=== PATIENT | female | born 1970 | race Asian ===

== ENCOUNTER 2017-03-09 18:33 | Inpatient (IN) | payer OTHER ==
[~2017-03-09] VITALS: Ht 165.1 cm; Wt 60.5 kg
[2017-03-09 18:41] VITALS: Ht 165.1 cm; Wt 60.5 kg
[2017-03-09 19:32] LABS: PLATELET COUNT 422 x10^3mcL (130-400); RED CELL DISTRIBUTION WIDTH 22.3 % (11.5-14.5)
[2017-03-09 19:42] LABS: CARBON DIOXIDE 26.8 mmol/L (21-32); CHLORIDE SERUM 105 mmol/L (98-107); CREATININE SERUM 0.8 mg/dL (0.6-1.0); GFR1 > 60 mL/min; GLUCOSE SERUM 120 mg/dL (74-106); POTASSIUM SERUM 3.2 mmol/L (3.5-5.1); SODIUM SERUM 142 mmol/L (136-145)
[2017-03-09 19:48] LABS: UA SPECIFIC GRAVITY <=1.005 (1.005-1.035); microscopic required? YES; urine erythrocyte 3+ (NEGATIVE)
[2017-03-09 19:49] LABS: ALBUMIN 4.3 g/dL (3.4-5.0); ALKALINE PHOSPHATASE 51 U/L (46-116); ALT/SGPT 23 U/L (14-59); AST/SGOT 14 U/L (15-37); BILIRUBIN TOTAL 0.3 mg/dL (0.20-1.00); CHOLESTEROL 247 mg/dL (<200); CHOLESTEROL/HDL RATIO 3.9; HDL CHOLESTEROL 64 mg/dL (40-60); LIPASE 348 IU/L (73-393); TOTAL PROTEIN, SERUM 8.5 g/dL (6.4-8.2); TRIGLYCERIDES 122 mg/dL (<150)
[2017-03-09 19:56] LABS: T3 TOTAL 1.04 ng/mL
[2017-03-09 20:08] LABS: FREE T4 0.99 ng/dL (0.76-1.46); FREE THYROXINE INDEX 3.3 ug/dL (1.4-4.5); T4(THYROXINE) 9.9 ug/dL (4.7-13.3)
[2017-03-09 20:12] LABS: AMPHETAMINE QUAL UR NONE DETECTED (NEG <=1000)
[2017-03-09 20:29] LABS: BAND NEUTROPHIL 3 % (0-10); METAMYELOCTE 1 % (0-2); MONOCYTE 3 % (0-7); SEGMENTED NEUTROPHILS 85 % (37-75)
[2017-03-09 20:30] LABS: PLATELET MORPHOLOGY FEW LARGE PLATELETS; ovalocyte/elliptocyte 1+; rbc morphology (normal/abnorm) ABNORMAL (NORMAL)
[2017-03-09 21:20] LABS: MAGNESIUM 2.2 mg/dL (1.8-2.4); PHOSPHOROUS 3.3 mg/dL (2.5-4.9)
[2017-03-09 21:22] VITALS: BP 123/71
[2017-03-10 03:58] LABS: IRON 16 ug/dL (50-170); TOTAL IRON BINDING CAPACITY 573 ug/dL (250-450)
[2017-03-10 05:19] LABS: PLATELET COUNT 343 x10^3mcL (130-400); RED BLOOD CELLS 4.05 M/mm3 (4.10-5.10)
[2017-03-10 05:30] LABS: CALCIUM 8.2 mg/dL (8.5-10.1); CARBON DIOXIDE 24.5 mmol/L (21-32); CHLORIDE SERUM 106 mmol/L (98-107); CREATININE SERUM 0.7 mg/dL (0.6-1.0); GFR1 > 60 mL/min; GLUCOSE SERUM 104 mg/dL (74-106); POTASSIUM SERUM 4.1 mmol/L (3.5-5.1); SODIUM SERUM 138 mmol/L (136-145)
[2017-03-10 05:43] LABS: RED CELL DISTRIBUTION WIDTH 22.1 % (11.5-14.5)
[2017-03-10 05:45] VITALS: BP 99/46
[2017-03-10 10:33] LABS: ATYPICAL LYMPH 2 %; BAND NEUTROPHIL 1 % (0-10); BASOPHIL 1 % (0-2); MONOCYTE 1 % (0-7); SEGMENTED NEUTROPHILS 79 % (37-75)
[2017-03-10 10:35] LABS: rbc morphology (normal/abnorm) ABNORMAL (NORMAL)
[2017-03-10 10:36] LABS: PLATELET MORPHOLOGY PLATELETS NORMAL
[2017-03-10 10:40] VITALS: BP 112/59
[2017-03-10 13:29] VITALS: BP 107/71
[2017-03-10 17:32] VITALS: BP 90/54
[2017-03-11 05:33] VITALS: BP 107/53
[2017-03-11 07:46] LABS: PLATELET COUNT 354 x10^3mcL (130-400)
[2017-03-11 07:49] LABS: CALCIUM 8.3 mg/dL (8.5-10.1); CARBON DIOXIDE 24.9 mmol/L (21-32); CHLORIDE SERUM 108 mmol/L (98-107); CREATININE SERUM 0.6 mg/dL (0.6-1.0); GFR1 > 60 mL/min; GLUCOSE SERUM 93 mg/dL (74-106); MAGNESIUM 2.1 mg/dL (1.8-2.4); PHOSPHOROUS 3.8 mg/dL (2.5-4.9); POTASSIUM SERUM 4.5 mmol/L (3.5-5.1); SODIUM SERUM 140 mmol/L (136-145)
[2017-03-11 07:55] LABS: RED CELL DISTRIBUTION WIDTH 21.6 % (11.5-14.5)
[2017-03-11 09:16] LABS: BAND NEUTROPHIL 2 % (0-10); BASOPHIL 0 % (0-2); MONOCYTE 5 % (0-7); PLATELET MORPHOLOGY PLATELETS NORMAL; SEGMENTED NEUTROPHILS 70 % (37-75); rbc morphology (normal/abnorm) ABNORMAL (NORMAL)
[2017-03-11 10:03] VITALS: BP 110/64
[2017-03-11] MEDS ORDERED: NITROFURANTOIN100 MG PO (11:17)
[2017-03-11] MEDS ORDERED: LIPI10 PO (11:18)
[2017-03-11] MEDS ORDERED: TOP50 PO (11:19)
[2017-03-11] MEDS ORDERED: ADV200 PO (11:19)
[2017-03-11] MEDS ORDERED: LAC PO (11:20)
[2017-03-11] MEDS ORDERED: FER300 PO (11:24)
[2017-03-11] MEDS ORDERED: VITC PO (11:25)
[2017-03-11] MEDS ORDERED: COL100 PO (11:25)
[2017-03-11 13:36] VITALS: BP 106/62
[2017-03-11 15:54] VITALS: BP 106/62
[2017-03-11 16:36] LABS: BASOPHIL % 0.1 % (0-2)
[2017-03-11 16:48] LABS: PLATELET COUNT 415 x10^3mcL (130-400); RED CELL DISTRIBUTION WIDTH 21.8 % (11.5-14.5)
[2017-03-11 17:09] LABS: rbc morphology (normal/abnorm) ABNORMAL (NORMAL)
== END 2017-03-11 16:37 | disposition home or self-care (01) | DRG 201 ==
LOC: ED 18:33 → DU 20:28
PROVIDERS: Family Medicine Sports Medicine; Specialist; ADMIT Family Medicine
PROC: 5A2204Z Restoration of Cardiac Rhythm, Single (ICD-10-PCS; principal; 2017-03-09)
DX: I47.1 Supraventricular tachycardia (principal); N17.0 Acute kidney failure with tubular necrosis; E11.65 Type 2 diabetes mellitus with hyperglycemia; N39.0 Urinary tract infection, site not specified; E87.6 Hypokalemia; E78.00 Pure hypercholesterolemia, unspecified; D47.3 Essential (hemorrhagic) thrombocythemia; R31.9 Hematuria, unspecified; Z68.22 Body mass index [BMI] 22.0-22.9, adult; Z87.891 Personal history of nicotine dependence; Z83.3 Family history of diabetes mellitus; Z82.49 Family history of ischemic heart disease and other diseases of the circulatory system
CPT/HCPCS: 82962; 83880; 84439; J0153; J0696; J2916; J7030; Q0092

== ENCOUNTER 2017-05-30 22:31 | Emergency (ER) | payer OTHER ==
[~2017-05-30] VITALS: Ht 160 cm; Wt 60.3 kg
[~2017-05-30 22:31] MED LIST: ADV200 PO; COL100 PO; FER300 PO; LAC PO; LIPI10 PO; NITROFURANTOIN100 MG PO; TOP50 PO; VITC PO
[2017-05-30 22:54] VITALS: BP 131/83; Ht 160 cm; Wt 60.3 kg
== END 2017-05-30 23:18 | disposition left against medical advice (07) ==
LOC: ED 22:31
DX: Z53.21 Procedure and treatment not carried out due to patient leaving prior to being seen by health care provider (principal)

== ENCOUNTER 2017-11-17 00:25 | Emergency (ER) | payer OTHER ==
[~2017-11-17] VITALS: Ht 160 cm; Wt 62.1 kg
[2017-11-17 01:13] LABS: CALCIUM 9.1 mg/dL (8.5-10.1); CHLORIDE SERUM 103 mmol/L (98-107); CREATININE SERUM 0.9 mg/dL (0.6-1.0); GFR1 > 60 mL/min; GLUCOSE SERUM 121 mg/dL (74-106); POTASSIUM SERUM 3.7 mmol/L (3.5-5.1); SODIUM SERUM 140 mmol/L (136-145)
[2017-11-17 01:18] LABS: ALBUMIN 3.9 g/dL (3.4-5.0); ALKALINE PHOSPHATASE 48 U/L (46-116); ALT/SGPT 35 U/L (14-59); AST/SGOT 22 U/L (15-37); BILIRUBIN TOTAL 0.06 mg/dL (0.20-1.00); TOTAL PROTEIN, SERUM 7.5 g/dL (6.4-8.2)
[2017-11-17 01:52] LABS: microscopic required? NO
[2017-11-17 02:20] LABS: UA SPECIFIC GRAVITY <=1.005 (1.005-1.035); urine erythrocyte NEGATIVE (NEGATIVE)
[2017-11-17 03:40] VITALS: BP 111/69
== END 2017-11-17 03:40 | disposition home or self-care (01) ==
LOC: ED 00:25
PROVIDERS: Emergency Medicine
DX: F41.1 Generalized anxiety disorder (principal); I10 Essential (primary) hypertension; E11.9 Type 2 diabetes mellitus without complications
CPT/HCPCS: J8597

== ENCOUNTER 2018-03-29 16:52 | Emergency (ER) | payer SELFPAY ==
[~2018-03-29] VITALS: Ht 160 cm; Wt 62.3 kg
[2018-03-29 17:18] VITALS: Ht 160 cm; Wt 62.3 kg
[2018-03-29 20:42] VITALS: BP 130/75
== END 2018-03-29 20:42 | disposition home or self-care (01) ==
LOC: ED 16:52
DX: S06.0X0A Concussion without loss of consciousness, initial encounter (principal); I10 Essential (primary) hypertension; E11.9 Type 2 diabetes mellitus without complications; W22.8XXA Striking against or struck by other objects, initial encounter; Y93.89 Activity, other specified; Y92.89 Other specified places as the place of occurrence of the external cause; Y99.8 Other external cause status
CPT/HCPCS: 90715; J8597; Q0162

== ENCOUNTER 2018-04-14 23:18 | Emergency (ER) | payer OTHER ==
[~2018-04-14] VITALS: Ht 160 cm; Wt 61.2 kg
[2018-04-14 23:21] VITALS: Ht 160 cm; Wt 61.2 kg
[2018-04-15 00:46] LABS: microscopic required? NO
[2018-04-15 00:55] LABS: UA SPECIFIC GRAVITY <=1.005 (1.005-1.035); urine erythrocyte NEGATIVE (NEGATIVE)
[2018-04-15 01:01] LABS: BASOPHIL % 0.6 % (0-2); PLATELET COUNT 390 x10^3mcL (130-400)
[2018-04-15 01:02] LABS: RED CELL DISTRIBUTION WIDTH 14.8 % (11.5-14.5)
[2018-04-15 01:08] LABS: AMPHETAMINE QUAL UR NONE DETECTED (See below)
[2018-04-15 01:35] LABS: CALCIUM 9.6 mg/dL (8.5-10.1); CARBON DIOXIDE 23.7 mmol/L (21-32); CHLORIDE SERUM 100 mmol/L (98-107); CREATININE SERUM 0.7 mg/dL (0.6-1.0); GFR1 > 60 mL/min; GLUCOSE SERUM 132 mg/dL (74-106); POTASSIUM SERUM 3.5 mmol/L (3.5-5.1); SODIUM SERUM 136 mmol/L (136-145)
[2018-04-15 01:53] LABS: ALBUMIN 4.1 g/dL (3.4-5.0); ALKALINE PHOSPHATASE 42 U/L (46-116); ALT/SGPT 37 U/L (14-59); AMYLASE 53 U/L (25-115); AST/SGOT 19 U/L (15-37); LIPASE 245 IU/L (73-393); TOTAL PROTEIN, SERUM 7.8 g/dL (6.4-8.2)
[2018-04-15 01:54] LABS: BILIRUBIN TOTAL 0 mg/dL (0.20-1.00); CHOLESTEROL 270 mg/dL (<200); HDL CHOLESTEROL 56 mg/dL (40-60); T4(THYROXINE) 8.7 ug/dL (4.7-13.3)
[2018-04-15 02:09] VITALS: BP 112/71
== END 2018-04-15 02:10 | disposition home or self-care (01) ==
LOC: ED 23:18
PROVIDERS: Emergency Medicine
DX: R42 Dizziness and giddiness (principal); R51 Headache; I10 Essential (primary) hypertension; E11.9 Type 2 diabetes mellitus without complications; E78.00 Pure hypercholesterolemia, unspecified
CPT/HCPCS: J7030; Q0092

== ENCOUNTER 2018-04-24 19:27 | Emergency (ER) | payer OTHER ==
[~2018-04-24] VITALS: Ht 160 cm; Wt 63.5 kg
[2018-04-24 19:29] VITALS: Ht 160 cm; Wt 63.5 kg
[2018-04-24 22:17] VITALS: BP 116/82
== END 2018-04-24 22:17 | disposition home or self-care (01) ==
LOC: ED 19:27
DX: R42 Dizziness and giddiness (principal); I10 Essential (primary) hypertension; E11.9 Type 2 diabetes mellitus without complications
CPT/HCPCS: J8597

== ENCOUNTER 2020-01-01 21:54 | Emergency (ER) | payer OTHER ==
[2020-01-01 22:05] VITALS: BP 129/81
== END 2020-01-01 22:40 | disposition home or self-care (01) ==
LOC: ED 21:54
DX: S50.811A Abrasion of right forearm, initial encounter (principal); S70.311A Abrasion, right thigh, initial encounter; X58.XXXA Exposure to other specified factors, initial encounter; Y93.89 Activity, other specified; Y92.89 Other specified places as the place of occurrence of the external cause; Y99.8 Other external cause status; I10 Essential (primary) hypertension; E11.9 Type 2 diabetes mellitus without complications

== ENCOUNTER 2020-01-03 17:56 | Emergency (ER) | payer OTHER ==
[~2020-01-03] VITALS: Ht 160 cm; Wt 66.2 kg
[2020-01-03 18:21] VITALS: Ht 160 cm; Wt 66.2 kg
[2020-01-03 20:49] VITALS: BP 115/63
== END 2020-01-03 20:49 | disposition home or self-care (01) ==
LOC: ED 17:56
DX: S06.0X0A Concussion without loss of consciousness, initial encounter (principal); I10 Essential (primary) hypertension; E11.9 Type 2 diabetes mellitus without complications; V49.9XXA Car occupant (driver) (passenger) injured in unspecified traffic accident, initial encounter; Y93.89 Activity, other specified; Y92.89 Other specified places as the place of occurrence of the external cause; Y99.8 Other external cause status
CPT/HCPCS: J1885; Q0162

== ENCOUNTER 2020-04-09 03:08 | Emergency (ER) | payer OTHER ==
[~2020-04-09] VITALS: Ht 160 cm; Wt 63.5 kg
[2020-04-09 03:09] VITALS: Ht 160 cm; Wt 63.5 kg
[2020-04-09 03:56] VITALS: BP 159/91
== END 2020-04-09 03:56 | disposition home or self-care (01) ==
LOC: ED 03:08
DX: U07.1 COVID-19 (principal); J12.89 Other viral pneumonia; I10 Essential (primary) hypertension

== ENCOUNTER 2020-04-09 07:39 | Emergency (ER) | payer OTHER ==
[~2020-04-09] VITALS: Ht 160 cm; Wt 63.5 kg
[2020-04-09 07:41] VITALS: Ht 160 cm; Wt 63.5 kg
[2020-04-09 08:13] VITALS: BP 145/87
== END 2020-04-09 08:13 | disposition home or self-care (01) ==
LOC: ED 07:39
DX: U07.1 COVID-19 (principal); I10 Essential (primary) hypertension